=== PATIENT | male | born 1990 | race American Indian/Alaskan Native ===

== ENCOUNTER 2020-11-03 15:37 | Emergency (ER) | payer OTHER ==
[2020-11-03] MEDS ORDERED: MORPHINE 4 MG/1 ML INJ IV ONE (16:05)
[2020-11-03] MEDS ORDERED: ONDANSETRON 4 MG/2 ML INJ IV ONE (16:05)
[2020-11-03] MEDS ORDERED: SODIUM CHLORIDE 0.9% 1000 ML 1,000 ML IV ONE (16:05)
--- NOTE | 2020-11-03 16:07 | Event Note ---
ED Screening Note Date of service: 11/03/20 Time: 16:07 ED Screening Note: Patient complains of sudden onset of abdominal pain, nausea, vomiting, diarrhea today Patient diaphoretic Admits to marijuana use Denies prior history of GI issues This initial assessment/diagnostic orders/clinical plan/treatment(s) is/are subject to change based on patients health status, clinical progression and re- assessment by fellow clinical providers in the ED. Further treatment and workup at subsequent clinical providers discretion. Patient/guardian urged not to elope from the ED as their condition may be serious if not clinically assessed and managed. Initial orders include: Labs Mid
[2020-11-03 16:21] LABS: Basophils % (Auto) 0.2 % (0.0-1.8); Eosinophils % (Auto) 0.2 % (0.0-4.3); Hematocrit 47.6 % (35.5-45.6); Lymphocytes % (Auto) 15.4 % (13.4-35.0); Mean Corpuscular HGB Conc 34 % (32-34); Mean Corpuscular Volume 92 fl (84-94); Monocytes # (Auto) 0.5 K/mm3 (0.0-0.8); Monocytes % (Auto) 3.9 % (0.0-7.3); Platelet Count 174 K/mm3 (140-440); Red Blood Count 5.15 M/mm3 (3.65-5.03); Red Cell Distribution Width 12.8 % (13.2-15.2)
[2020-11-03 16:43] LABS: Alanine Aminotransferase 32 units/L (7-56); Albumin 4.8 g/dL (3.9-5); BUN/Creatinine Ratio 9; Blood Urea Nitrogen 9 mg/dL (9-20); Calcium 9.6 mg/dL (8.4-10.2); Hemolysis Index 20
[2020-11-03 19:24] VITALS: BP 128/56
--- NOTE | 2020-11-07 09:49 | Electrocardiograph Report ---
[facility] Test Date: 2020-11-03 Test Time: 15:51:18 Pat Name: YUE ABREU Department: Room: Gender: M It Compliance Analyst: ALIE : 1990 Requested By: JEREMIAH HENRY Order Number: [id number] Reading MD: Jhon Hamilton Measurements Intervals Cascade Rate: 60 P: -38 CT: 153 QRS: 58 QRSD: 89 T: 9 QT: 415 QTc: 415 Interpretive Statements Sinus rhythm No previous ECG available for comparison Electronically Signed On 11-07-2020 9:49:09 EDT by Jhon Hamilton
== END 2020-11-03 20:00 | disposition left against medical advice (07) ==
LOC: ED 15:37
DX: R07.9 Chest pain, unspecified (principal); Z53.21 Procedure and treatment not carried out due to patient leaving prior to being seen by health care provider
CPT/HCPCS: 36415; 80053; 82962; 83690; 85025; J2270; J2405; J7030; 93005

== ENCOUNTER 2022-03-01 16:01 | Emergency (ER) | payer OTHER | END 2022-03-02 04:00 | disposition left against medical advice (07) | LOC: ED 16:01 | DX: T78.40XA Allergy, unspecified, initial encounter (principal); Z53.21 Procedure and treatment not carried out due to patient leaving prior to being seen by health care provider ==